=== PATIENT | female | born 1960 | race Caucasian/White ===

== ENCOUNTER 2024-09-11 16:32 | Inpatient (IN) | payer MEDICARE, OTHER ==
[~2024-09-11] VITALS: Ht 160 cm; Wt 68.9 kg
[2024-09-11] MEDS ORDERED: ESCI20TA PO (16:57)
[2024-09-11] MEDS ORDERED: FAMO10TA41 PO (16:57)
[2024-09-11] MEDS ORDERED: CETI-90 PO (16:57)
[2024-09-11] MEDS ORDERED: LORAZEPAM 1 MG TABLET ONE (19:00)
[2024-09-11] MEDS ORDERED: HYDROMORPHONE 1 MG/1 ML DISP.SYRIN ONE (19:01)
[2024-09-11] MEDS: HYDROMORPHONE 1 MG/1 ML DISP.SYRIN IM ONE (19:04)
[2024-09-11] MEDS: LORAZEPAM 0.5 MG TABLET PO ONE (19:04)
[2024-09-11] MEDS ORDERED: LORAZEPAM 1 MG TABLET PO PRN (21:30)
[2024-09-11] MEDS ORDERED: MAG HYDROX/AL HYDROX/SIMETH 30 ML LIQUID UDC PO PRN (21:30)
[2024-09-11] MEDS ORDERED: MAGNESIUM HYDROXIDE 30 ML LIQUID UDC PO PRN (21:30)
[2024-09-11] MEDS ORDERED: ACETAMINOPHEN 325 MG TABLET PO PRN (21:30)
[2024-09-11] MEDS ORDERED: TEMAZEPAM 7.5 MG CAPSULE PO PRN ×2 (21:30)
[2024-09-11 21:34] VITALS: BP 120/50; TEMP 98.4; O2SAT 100
[2024-09-11] MEDS ORDERED: CETIRIZINE HCL 10 MG TABLET PO PRN (21:45)
[2024-09-11] MEDS: BLOOD SUGAR DIAGNOSTIC 1 EACH STRIP VI ONE (21:58)
[2024-09-11] MEDS: LORAZEPAM 1 MG TABLET PO PRN (22:00)
[2024-09-12 07:34] LABS: PLATELET COUNT (AUTO) 283 K/uL (179-408); RED BLOOD CELL COUNT(AUTO) 3.61 MIL/uL (3.63-4.92); RED CELL DISTRIBUTION WIDTH 13.5 % (12.3-17.7); WHITE BLOOD COUNT (AUTO) 6.3 K/uL (3.8-11.8)
[2024-09-12 08:03] LABS: ASPARTATE AMINOTRANSFERASE 6.0 U/L (15-37); CREATININE 0.6 mg/dL (0.6-1.3); GLUCOSE FASTING 100.0 mg/dL (70-115); SODIUM SERUM 138.0 mmol/L (136-145); TOTAL PROTEIN, SERUM 6.3 g/dL (6.4-8.2); UREA NITROGEN, BLOOD 17.0 mg/dL (7-18)
[2024-09-12 08:56] VITALS: BP 113/58; TEMP 98; O2SAT 98
[2024-09-12] MEDS ORDERED: LORAZEPAM 1 MG TABLET PO PRN (10:15)
[2024-09-12] MEDS: DIVALPROEX SPRINKLE 125 MG CAP.SPRINK PO SCH (12:33)
[2024-09-12] MEDS: NICOTINE 14 MG/24HR PATCH TD SCH (12:33)
[2024-09-12] MEDS: FAMOTIDINE 20 MG TABLET PO SCH (12:33)
[2024-09-12] MEDS: LORAZEPAM 0.5 MG TABLET PO PRN (12:39)
[2024-09-12] MEDS ORDERED: DICY20TA11 PO (15:51)
[2024-09-12] MEDS ORDERED: FLUT16SP BNOSTRILS (15:52)
[2024-09-12] MEDS ORDERED: HYDR8TAB18 PO (15:53)
[2024-09-12] MEDS ORDERED: CARI350T27 PO (15:53)
[2024-09-12 16:32] VITALS: BP 112/71; TEMP 98; O2SAT 98
[2024-09-12] MEDS ORDERED: DICYCLOMINE HCL 20 MG TABLET PO PRN (17:00)
[2024-09-12] MEDS ORDERED: FLUTICASONE PROP NASAL SPRAY 16 GM BOTTLE NS PRN (17:00)
[2024-09-12] MEDS ORDERED: HYDROMORPHONE HCL PO PRN (17:00)
[2024-09-12] MEDS ORDERED: CARISOPRODOL 350 MG TABLET PO PRN (17:00)
[2024-09-12] MEDS ORDERED: HYDROMORPHONE HCL 2 MG TABLET PO PRN (17:45)
[2024-09-12] MEDS ORDERED: NALOXONE NASAL SPRAY 4 MG SPRAY NS PRN (18:00)
[2024-09-12 20:00] VITALS: BP 110/58; TEMP 98.2; O2SAT 95
[2024-09-12] MEDS: HYDROMORPHONE HCL 2 MG TABLET PO PRN (20:40)
[2024-09-12 22:59] VITALS: BP 110/58; TEMP 98.2; O2SAT 97
[2024-09-13 07:42] VITALS: BP 115/52; TEMP 98.5; O2SAT 97
[2024-09-13] MEDS: CARISOPRODOL 350 MG TABLET PO PRN (13:33)
[2024-09-13 15:16] VITALS: BP 100/44; TEMP 98.5; O2SAT 97
[2024-09-13 19:39] VITALS: BP 90/47; TEMP 98.4; O2SAT 98
[2024-09-13 20:17] VITALS: BP 111/57; O2SAT 97
[2024-09-14 08:07] VITALS: BP 117/49; TEMP 98.2; O2SAT 99
[2024-09-14 15:38] VITALS: BP 95/56; TEMP 98.2; O2SAT 98
[2024-09-14 19:42] VITALS: BP 108/69; TEMP 98.1; O2SAT 99
[2024-09-15 07:30] VITALS: BP 126/51; TEMP 98; O2SAT 99
== END 2024-09-15 11:15 | disposition home or self-care (01) | DRG 885 ==
LOC: ER 16:32 → GPS 19:44
PROVIDERS: ADMIT Psychiatry & Neurology Psychosomatic Medicine; ATTEND Student in an Organized Health Care Education/Training Program
DX: F31.9 Bipolar disorder, unspecified (principal); E44.1 Mild protein-calorie malnutrition; Z91.51 Personal history of suicidal behavior; G89.29 Other chronic pain; F43.10 Post-traumatic stress disorder, unspecified; Z90.710 Acquired absence of both cervix and uterus; Z62.810 Personal history of physical and sexual abuse in childhood; F41.9 Anxiety disorder, unspecified; Z98.1 Arthrodesis status; Z88.0 Allergy status to penicillin; Z88.1 Allergy status to other antibiotic agents; Z91.018 Allergy to other foods; Z68.26 Body mass index [BMI] 26.0-26.9, adult; D89.40 Mast cell activation, unspecified
CPT/HCPCS: 36415; 83735; 84100; 84443; 85025; J1171; J3535